=== PATIENT | female | born 1960 ===

== ENCOUNTER 2022-12-17 10:21 | Emergency (ER) | payer SELFPAY ==
--- NOTE | 2022-12-17 10:49 | PC.NURSE ---
Addendum entered by Zarina Mac RN 12/17/22 11:58: 1035 Original Note: prior to triage informs staff she came from [facility], where she attempted to fill a prescription for brilinta, which had an doctors signature on it. states she was instructed to come here for a new prescription, with an burmese doctors name on it. informed a nurse practitioner would see and evaluate her here, and discuss refill, including options. states she does not want to be seen by our WEBBING TACKER at this time. left with information technology instructor in no apparent distress. pleasant and talkative.
== END 2022-12-17 10:35 | disposition left against medical advice (07) ==
PROVIDERS: Emergency Provider Nurse Practitioner Family
DX: Z53.21 Procedure and treatment not carried out due to patient leaving prior to being seen by health care provider (principal)
CPT/HCPCS: 99199